=== PATIENT | female | born 2000 | race Caucasian/White ===

== ENCOUNTER 2020-04-23 00:45 | Emergency (ER) | payer SELFPAY ==
[2020-04-23] MEDS ORDERED: KETOROLAC TROMETHAMINE INJ/PF 30 MG/1 ML SDV IV ONE (01:48)
[2020-04-23] MEDS ORDERED: ONDANSETRON HCL INJ/PF 4 MG/2 ML SDV IV ONE (01:48)
--- NOTE | 2020-04-23 01:48 | ER Document Report ---
ED General - General Chief Complaint: Allergic Reaction Stated Complaint: POSSIBLE ALLERGIC REACTION Time Seen by Provider: 04/23/20 01:38 Notes: Patient is a 19-year-old female who comes emergency department for chief complaint of generalized symptoms including weakness, body aches, chills, feeling like she is too weak to lift her head, vague nausea, and sore throat. She states symptoms started today. She denies fever, vomiting, cough, abdominal pain, flank pain, vaginal bleeding or discharge, dysuria. She denies neck stiffness or current headache. She states that she used a latex condom last night with her boyfriend and she wonders if this is an allergic reaction. She denies any rash, difficulty swallowing or breathing, vaginal irritation. She denies any daily medications. She smokes occasionally, drinks occasionally, denies recreational drugs. She denies any obvious exposures to COVID-19. - Related Data Allergies/Adverse Reactions: latex Adverse Reaction (Uncoded 04/23/20 00:54) Home Medications: none Past Medical History - General Information source: Patient - Social History Smoking Status: Current Some Day Smoker Chew tobacco use (# tins/day): No Frequency of alcohol use: Rare Drug Abuse: None Lives with: Family Family History: Reviewed & Not Pertinent Patient has homicidal ideation: No - Medical History Medical History: Negative Surgical Hx: Negative - Immunizations Immunizations up to date: Yes Hx Diphtheria, Pertussis, Tetanus Vaccination: Yes Review of Systems - Review of Systems Constitutional: See HPI EENT: No symptoms reported Cardiovascular: No symptoms reported Respiratory: No symptoms reported Gastrointestinal: No symptoms reported Genitourinary: No symptoms reported Female Genitourinary: See HPI Musculoskeletal: No symptoms reported Skin: No symptoms reported Hematologic/Lymphatic: No symptoms reported Neurological/Psychological: No symptoms reported Physical Exam - Vital signs Vitals: Temp Pulse Resp BP Pulse Ox 98.6 F 91 16 131/85 H 100 04/23/20 00:52 04/23/20 00:52 04/23/20 00:52 04/23/20 00:52 04/23/20 00:52 - Notes Notes: GENERAL: Alert, interacts well. No acute distress. HEAD: Normocephalic, atraumatic. EYES: Pupils equal, round, and reactive to light. Extraocular movements intact. ENT: Oral mucosa parched with dry cracked lips and very dry tongue, tongue midline. Oropharynx unremarkable. Airway patent. Nares patent, sinuses non- tender, ear canals unremarkable, TM's intact. NECK: Full range of motion. Supple. Trachea midline. No lymphadenopathy. No nuchal rigidity LUNGS: Clear to auscultation bilaterally, no wheezes, rales, or rhonchi. No respiratory distress. Non-tender chest wall. HEART: Regular rate and rhythm. No murmur ABDOMEN: Soft, non-tender. Non-distended. No guarding or rigidity EXTREMITIES: Moves all 4 extremities spontaneously. No edema, normal radial and dorsalis pedis pulses bilaterally. No cyanosis. BACK: no cervical, thoracic, lumbar midline tenderness. No saddle anesthesia, normal distal neurovascular exam. Moves all extremities in full range of motion. NEUROLOGICAL: Alert and oriented x3. Normal speech. Cranial nerves II through XII grossly intact. Strength 5/5 in all extremities. PSYCH: Normal affect, normal mood. SKIN: Warm, dry, normal turgor. No rashes or lesions noted. Course - Re-evaluation Re-evalutation: Patient with a slightly bizarre story thinking she had symptoms from an allergic reaction from a condom. She has no rash, vaginal irritation or discharge, and no other symptoms or findings suggesting allergic reaction. Patient reassured in regards to this. She reports constitutional symptoms otherwise. No fever, cough, shortness of breath, chest pain, headache, nuchal rigidity, and her abdomen is soft and benign. She declines a pelvic exam. CBC unremarkable, chemistry unremarkable, test negative. Urine shows probable infection although there are some squamous epithelials. There is dehydration noted on her work-up and patient does have very dry mucous membranes. She was given IV fluids. She has no complaints on reevaluation. I discussed options with patient. Decision was made to treat her for potential UTI because of her constitutional symptoms, discussed expectations, follow-up, return precautions. Patient states appreciation and agreement. Stable and well-appearing at time of discharge. - Vital Signs Vital signs: Temp Pulse Resp BP Pulse Ox 98.3 F 85 16 133/70 H 100 04/23/20 05:40 04/23/20 05:40 04/23/20 05:40 04/23/20 05:40 04/23/20 05:40 - Laboratory Results Result Diagrams: 04/23/20 02:05 04/23/20 02:05 Laboratory Results Interpreted: 04/23/20 04/23/20 02:05 02:15 WBC 11.9 H Absolute Neuts (auto) 8.4 H Urine Urobilinogen 2.0 H Ur Leukocyte Esterase LARGE H Critical Laboratory Results Reviewed: No Critical Results - Radiology Results Critical Radiology Results Reviewed: No Critical Results Discharge - Discharge Clinical Impression: Weakness, Chills, Body aches Condition: Stable Disposition: HOME, SELF-CARE Additional Instructions: I suspect your generalized symptoms are caused by a urinary tract infection. We are treating you for this. Drink plenty of fluids, rest, symptoms should simply resolve. No signs of allergic reaction are noted on your evaluation today. Follow-up with primary care. Return if you worsen including developed abdominal pain, vomiting, fever, or any other concerning or worsening symptoms. Prescriptions: Cephalexin Monohydrate [Keflex 500 mg Capsule] 500 mg PO BID 7 Days #14 capsule
[2020-04-23 02:22] LABS: ABSOLUTE BASOPHILS # (AUTO) 0.1 10^3/uL (0.0-0.2); ABSOLUTE EOSINOPHILS # (AUTO) 0.2 10^3/uL (0.0-0.6); ABSOLUTE LYMPHOCYTES (AUTO) 2.5 10^3/uL (0.5-4.7); ABSOLUTE MONOCYTES (AUTO) 0.7 10^3/uL (0.1-1.4); ABSOLUTE NEUT (AUTO) 8.4 10^3/uL (1.7-8.2); BASOPHILS % (AUTO) 0.8 % (0-2); EOSINOPHILS % (AUTO) 1.8 % (0-6); HEMATOCRIT 42.8 % (36.0-47.0); HEMOGLOBIN 14.9 g/dL (12.0-15.5); LYMPHOCYTES % (AUTO) 20.7 % (13-45); MEAN CORPUSCULAR HEMOGLOBIN 28.7 pg (27.0-33.4); MEAN CORPUSCULAR HGB CONC 34.7 g/dL (32.0-36.0); MEAN CORPUSCULAR VOLUME 83 fl (80-97); MONOCYTES % (AUTO) 6.2 % (3-13); PLATELET COUNT 270 10^3/uL (150-450); RED BLOOD COUNT 5.18 10^6/uL (3.72-5.28); SEGMENTED NEUTROPHILS % (AUTO) 70.5 % (42-78); TOTAL CELLS COUNTED % (AUTO) 100 %; WHITE BLOOD COUNT 11.9 10^3/uL (4.0-10.5)
[2020-04-23 02:39] LABS: APPEARANCE,URINE SLIGHTLY-CLOUDY; BILIRUBIN,URINE NEGATIVE (NEGATIVE); COLOR,URINE YELLOW; GLUCOSE, URINE NEGATIVE (NEGATIVE); KETONES,URINE NEGATIVE (NEGATIVE); LEUKOCYTE ESTERASE,URINE LARGE (NEGATIVE); NITRITE,URINE NEGATIVE (NEGATIVE); PROTEIN,URINE NEGATIVE (NEGATIVE); URINE SPECIFIC GRAVITY 1.024
[2020-04-23] MEDS ORDERED: NORMAL SALINE 1000 ML 1,000 ML IV ONE (03:06)
[2020-04-23 03:15] LABS: ALBUMIN 4.3 g/dL (3.5-5.0); ALKALINE PHOSPHATASE 91 U/L (38-126); ANION GAP 9 (5-19); ASPARTATE AMINO TRANSFERASE 22 U/L (14-36); BILIRUBIN,DIRECT 0.3 mg/dL (0.0-0.4); BILIRUBIN,TOTAL 0.8 mg/dL (0.2-1.3); BLOOD UREA NITROGEN 17 mg/dL (7-20); CALCIUM 9.9 mg/dL (8.4-10.2); CARBON DIOXIDE 26 mmol/L (22-30); CHLORIDE 106 mmol/L (98-107); GLUCOSE 98 mg/dL (75-110); POTASSIUM 4.5 mmol/L (3.6-5.0); TOTAL PROTEIN 7.6 g/dL (6.3-8.2)
[2020-04-23] MEDS ORDERED: CEPHALEXIN 500 MG CAPSULE PO ONE (04:59)
[2020-04-23 05:46] VITALS: BP 133/70
== END 2020-04-23 05:40 | disposition home or self-care (01) ==
LOC: ER 00:45
DX: R68.83 Chills (without fever) (principal); R53.1 Weakness; M79.10 Myalgia, unspecified site; F17.200 Nicotine dependence, unspecified, uncomplicated; Z91.040 Latex allergy status
CPT/HCPCS: 99284; 96361; 96374; 96375; 36415; 87070; 87880; 84703; 85025; 87077; 80053; 81001; J1885; J2405; J7030